=== PATIENT | female | born 1950 | race Caucasian/White ===

== ENCOUNTER 2017-03-22 14:34 | Emergency (ER) | payer BC ==
[2017-03-22] MEDS ORDERED: HYDROcodone/Acetaminophen 5/325 mg Tablet ONE (15:29)
[2017-03-22] MEDS ORDERED: Ibuprofen 200 MG TAB ONE (15:29)
--- NOTE | 2017-03-22 15:48 | RAD ---
HISTORY: Fall. AP VIEW PELVIS: AP view of the pelvis is obtained. The pelvis is unremarkable. No evidence of pelvic fractures, sublu xations, or bony lesions seen. IMPRESSION: Unremarkable AP view pelvis. POS: [facility]
--- NOTE | 2017-03-22 15:48 | RAD ---
RIGHT KNEE FOUR VIEWS: 03/22/17 HISTORY: Fall with knee pain. There is a comminuted mainly transversely oriented fracture through the patella minimally distracted. Small amount of joint effusion is seen. IMPRESSION: Patellar fracture. POS: [facility]
--- NOTE | 2017-03-22 15:52 | RAD ---
LEFT HAND THREE VIEWS: 03/22/17 HISTORY: Fell with hand pain. The bones are demineralized. There are arthritic changes in the hand. 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 On the AP projection, there is some slight lucency through the radial styloid, not confirmed on the o ther views. Given the presence of bony demineralization, the possibility of a subtle occult fracture would have to be considered. Clinical correlation as to whether the patient has pain in this region, IMPRESSION: Questionable radial styloid fracture. See above discussion. POS: [facility]
--- NOTE | 2017-03-22 15:56 | RAD ---
FOUR VIEWS LEFT KNEE: HISTORY: Left knee pain. FINDINGS: AP, lateral, and both oblique views of left knee are obtained. 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 No eviden ce of acute fractures, subluxations, or acute bony lesions seen. 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 No evide nce of acute left knee abnormality is seen. Some mild joint space narrowing is seen in the medial co mpartment. POS: [facility]
--- NOTE | 2017-03-22 17:54 | CT ---
CT BRAIN 03/22/17 PROVIDED CLINICAL HISTORY: Injury. FINDINGS: Examination was performed at 3:34 p.m., 03/22/17, submitted for interpretation 5:29 p.m., 03/22/17. Comparison is made with the study dated 02/22/11. The ventricular system appears normal in size and morphology. There is no evidence for intracranial h emorrhage or mass effect. Postoperative changes are noted involving the left temporal bone. There is opacification of the remaining left sided mastoid air cells. The extracranial soft tissues and osseou s structures demonstrate an otherwise unremarkable CT appearance. IMPRESSION: No evidence for intracranial hemorrhage or mass effect. POS: [facility]
== END 2017-03-22 17:25 | disposition home or self-care (01) ==
LOC: SCSER 14:34
DX: S52.512A Displaced fracture of left radial styloid process, initial encounter for closed fracture (principal); S82.031A Displaced transverse fracture of right patella, initial encounter for closed fracture; S82.041A Displaced comminuted fracture of right patella, initial encounter for closed fracture; E03.9 Hypothyroidism, unspecified; F32.9 Major depressive disorder, single episode, unspecified; I10 Essential (primary) hypertension; K21.9 Gastro-esophageal reflux disease without esophagitis; Z79.82 Long term (current) use of aspirin; Z79.899 Other long term (current) drug therapy; W01.0XXA Fall on same level from slipping, tripping and stumbling without subsequent striking against object, initial encounter; Y93.01 Activity, walking, marching and hiking
CPT/HCPCS: 70450; 72170

== ENCOUNTER 2018-03-13 07:30 | Outpatient (CLI) | payer MEDICARE, BC ==
--- NOTE | 2018-03-13 11:40 | NM ---
RADIONUCLIDE STRESS AND REST MYOCARDIAL PERFUSION SCAN WITH CT ATTENUATION CORRECTION AND SPECT IMAGI NG: LEFT VENTRICULAR WALL MOTION EVALUATION AND EJECTION FRACTION: HISTORY: Chest pain. FINDINGS: Adenosine protocol. Homogeneous uptake of radiotracer throughout the left ventricular myocardium on the stress and rest images. No focal perfusion defect or reversibility. QGS analysis of gated SPECT images shows no focal wall motion abnormalities. Left ventricular ejecti on fraction is calculated at greater than 80%. IMPRESSION: 1. Normal myocardial perfusion scan. 2. Normal left ventricular ejection fraction. POS: [facility]
== END 2018-03-13 07:31 | disposition home or self-care (01) ==
LOC: NM 07:30
PROVIDERS: ATTEND Internal Medicine
DX: R07.9 Chest pain, unspecified (principal)
CPT/HCPCS: 78452; 93017; A9500

== ENCOUNTER 2018-12-20 10:03 | Outpatient (CLI) | payer MEDICARE, BC ==
--- NOTE | 2018-12-20 10:12 | RAD ---
EXAM: 3 views of the right ankle HISTORY: Ankle pain COMPARISON: None FINDINGS: 3 views of the right ankle shows no evidence of acute fracture or dislocation. No soft tiss ue swelling is seen. No degenerative changes are present. IMPRESSION: No evidence of acute osseous abnormality.
== END 2018-12-20 10:04 | disposition home or self-care (01) ==
LOC: RAD-FRANK 10:03
PROVIDERS: ATTEND Internal Medicine
DX: S93.411A Sprain of calcaneofibular ligament of right ankle, initial encounter (principal)

== ENCOUNTER 2021-02-10 12:19 | Outpatient (CLI) | payer MEDICARE, OTHER | END 2021-02-10 12:20 | disposition home or self-care (01) | LOC: BICMRI 12:19 | PROVIDERS: ATTEND Specialist | DX: M51.17 Intervertebral disc disorders with radiculopathy, lumbosacral region (principal); M47.26 Other spondylosis with radiculopathy, lumbar region; N28.89 Other specified disorders of kidney and ureter | CPT/HCPCS: 72148 ==

== ENCOUNTER 2022-07-03 12:33 | Outpatient (CLI) | payer MEDICARE, OTHER | END 2022-07-03 12:34 | disposition home or self-care (01) | LOC: BICMAMMO 12:33 | PROVIDERS: ATTEND Family Medicine | DX: Z12.31 Encounter for screening mammogram for malignant neoplasm of breast (principal) | CPT/HCPCS: 77063; 77067 ==

== ENCOUNTER 2025-03-02 13:16 | Outpatient (CLI) | payer MEDICARE, OTHER | END 2025-03-02 13:17 | disposition home or self-care (01) | LOC: BICMAMMO 13:16 | DX: Z78.0 Asymptomatic menopausal state (principal); M81.0 Age-related osteoporosis without current pathological fracture | CPT/HCPCS: 77080 ==